=== PATIENT | female | born 1935 | race Caucasian/White ===

== ENCOUNTER 2018-09-06 08:12 | Day surgery (SDC) | payer MEDICARE, SELFPAY ==
[2018-08-25 07:37] VITALS: BMI 27.4
--- NOTE | 2018-08-25 07:59 | HP_ITS ---
Intake Vital Signs 08/25/18 Height 5 ft 2 in 08/25/18 Weight: 150 lb 1 oz 08/25/18 Body Mass Index (BMI) 27.4 08/25/18 Blood Pressure 167/92 H 08/25/18 Blood Pressure Location Rt brachial 08/25/18 Blood Pressure Position Sitting 08/25/18 Respiratory Rate 18 08/25/18 Pulse Rate 85 08/25/18 Pulse Ox 96 Intake Visit Reasons: HX OF COLON MONIKA CHACON PATIENT @ [facility] Chief Complaint: constipation, hx colon cancer Cement Paver Required: No Is patient in pain?: No Allergies No Known Allergies Allergy (Verified 08/25/18 07:38) Medications aspirin 81 mg tablet,delayed release 81 mg PO DAILY 08/25/18 [History Confirmed 08/25/18] atorvastatin 20 mg tablet 20 mg PO DAILY 08/25/18 [History Confirmed 08/25/18] cholecalciferol (vitamin D3) 2,000 unit capsule 2,000 unit PO DAILY 08/25/18 [History Confirmed 08/25/18] lactobacillus combination no.8 3 billion cell capsule 3,000 mmu cells PO DAILY 08/25/18 [History Confirmed 08/25/18] lansoprazole 15 mg capsule,delayed release 15 mg PO DAILY 08/25/18 [History Confirmed 08/25/18] methylcellulose (laxative) 500 mg tablet 500 mg PO ONCE 08/25/18 [History Confirmed 08/25/18] polyethylene glycol 3350 17 gram oral powder packet 17 g PO DAILY 08/25/18 [History Confirmed 08/25/18] vit C-vit [id number] ox-lutein 226 mg-200 unit-5 mg-0.8 mg capsule cap PO cap 08/25/18 [History Confirmed 08/25/18] Is last menstrual period known: No Post menopausal: Yes Patient : No PFSH Medical History Colon polyps (Acute) GERD (gastroesophageal reflux disease) (Acute) Hyperlipidemia (Acute) Lymphocytic colitis (Acute) Osteoporosis (Acute) Personal history of colon cancer (Acute) Thyroid goiter (Acute) Surgical History History of cataract extraction (Acute) History of colon resection (Acute ~2000) History of colonoscopy (Acute ~2012) History of eye surgery (Acute) History of hysterectomy (Acute) Social History Smoking Status: Never smoker ROS General General: Yes weight change and colon cancer; no appetite, fatigue, breast cancer or weakness HEENT HEENT: No difficulty swallowing, eye injury, eye surgery, swollen glands or hoarseness Endo Endocrine: No thyroid disease, diabetes mellitus, thyroid cancer, Hair loss, heat intolerance or cold intolerance Cardio Cardiovascular: No murmur, pacemaker, heart disease, atrial fibrillation, high blood pressure, heart attack, heart stent, palpitations, shortness of breat with exertion or chest pain Resp Respiratory: No shortness of breath, No sleep apnea, No cough, No COPD, No asthma, No emphysema, No wheezing Gastro Gastrointestinal: No abdominal pain, No nausea or vomiting, No diarrhea, Yes constipation, No blood in stool, Yes acid reflux, No hemorrhoids, No ulcers, No gallbladder problem, No black,tarry stools Chepe Hematologic: Yes blood thinners, No blood disorders, No bleeding, No anemia, No blood clots Neuro Neurologic: No weakness Exam Const General: no acute distress, well developed, well hydrated Orientation: oriented to person, oriented to place, oriented to time [facility] Head: normocephalic, atraumatic Ears: external ears normal Mouth: moist mucous membranes Eyes Sclera: sclerae normal Pupils: normal by confrontation Neck Neck: no lymphadenopathy noted Neck mass: No Thyroid: thyroid normal, symmetrical Chest Chest palpation & inspection: normal inspection of the chest Resp Effort & Inspection: normal respiratory effort Auscultation: clear to auscultation bilaterally Percussion: percussion normal Cardio Rate: regular rate Rhythm: regular rhythm Heart Sounds: no murmurs GI Palpation: soft, no hepatosplenomegaly, no masses, nontender Rectal Exam: other Other: Rectal exam deferred. Extrem General: normal to inspection, no clubbing, cyanosis or edema Assessment & Plan Problems 1. Gastroesophageal reflux disease, esophagitis presence not specified K21.9 2. Constipation, unspecified constipation type K59.00 3. Personal history of colon cancer Z85.038 Plan I have discussed the above with the patient. I have offered the patient colonoscopy as well as an esophagogastroduodenoscopy for evaluation. I have explained the risks/benefits of the procedure and described the procedure. I have discussed the risks with the patient, including but not limited to: infection, bleeding, perforation of the GI tract requiring emergency surgery, inability to complete the procedure, injury to any internal organs, complications of anesthesia, etc. - the patient understands and agrees to proceed. I have answered all the patient's questions to the patient's satisfaction and the patient has no further questions. The patient has been given instructions for the colon cleansing preparation. Orders Orders: Colonoscopy Today R19.4, Z85.038 EGD Today K21.9 Coding Level of Care Code Off vis,new,level 3 Diagnoses Gastroesophageal reflux disease, esophagitis presence not specified K21.9 ??Esophagitis presence: esophagitis presence not specified Constipation, unspecified constipation type K59.00 ??Constipation type: unspecified constipation type Personal history of colon cancer Z85.038
[2018-09-06 08:28] VITALS: BP 133/71; PULSE 88; RESP 16; TEMP 37.2; O2SAT 99; BMI 27.8
[2018-09-06 09:05] VITALS: BP 133/71; BP 138/71; PULSE 88; RESP 14
--- NOTE | 2018-09-06 09:30 | COLBX_PTH ---
PATIENT: VIRI LEVI LOC: EN U#:[id number] AGE/SX: 82/F ROOM: RE09/06/[address]: Dr. Kyle Aceves MD : [id number] BED: DIS: 09/06/2018 SPEC #: [id number] RECD: 09/06/18 10:06 STATUS: ROBERT FELTON #: [id number] LOPEZ: 09/06/18 09:[address]: Kyle Aceves DEPT: SURGICAL PATHOLOGY RECD BY: Nicolas Srivastava ENTERED: 09/06/18 10:19 SP TYPE: COLON BX OTHR DR: Dr. Iglesia Frias MD Tissues: Gastric mucous membrane Procedures: Surgery Specimen Level IV HEADER OPERATION: Colonoscopy, EGD ([facility] [place]) PRE-OP DIAGNOSIS: History colon CA, GERD, constipation TISSUE SUBMITTED: Fundic polyp biopsy MICROSCOPIC DIAGNOSIS Fundic gland polyp, biopsy: Fundic gland polyp. AM:[place] 4/9/19 MICROSCOPIC DESCRIPTION Slides are reviewed. GROSS DESCRIPTION Received in fixative is one container labeled with the patient's name and designated fundic polyp biopsy. The specimen consists of two irregular fragments of light wiley soft tissue that in aggregate measure 0.4 x 0.3 x 0.1 cm. The specimen is totally submitted in one cassette. / SJ:rg 09/06/18 TC:5 CPT: 27033
[2018-09-06 09:55] VITALS: BP 123/63; BP 133/71; PULSE 84; RESP 16; TEMP 36.8; O2SAT 97
--- NOTE | 2018-09-06 09:56 | OP.ENDO_ITS ---
09/06/2018 Iglesia Frias [address] [place] [address] Re : Upper GI endoscopy procedure for Cami Allen Dear Dr. Frias This procedure was performed on Thursday, September 06, 2018. My impressions and recommendations are as follows: Impressions : - Normal esophagus. - Z-line regular, 35 cm from the incisors. - Multiple gastric polyps. Biopsied. - Normal examined duodenum. No specimens collected. - The examination was otherwise normal. Recommendations : - Discharge patient to home. - Resume previous diet. - Continue present medications. - Await pathology results. - Repeat upper endoscopy (date not yet determined) for surveillance. - Return to my office in 1 week. My findings are described in the full procedure note, which is enclosed. If I can be of further assistance, please feel free to contact me at Doctor phone number(s): , Fax: [phone], Work: . Sincerely, MD Kyle José MD 09/06/2018 9:55:49 AM This report has been signed electronically.
[2018-09-06 10:00] VITALS: BP 124/72; BP 133/71; PULSE 88; RESP 16; O2SAT 97
--- NOTE | 2018-09-06 10:01 | OP.ENDO_ITS ---
09/06/2018 Iglesia Frias [address] [place] [address] Re : Colonoscopy procedure for Cami Allen Dear Dr. Frias This procedure was performed on Thursday, September 06, 2018. My impressions and recommendations are as follows: Impressions : - Diverticulosis in the descending colon. No specimens collected. - Non-bleeding internal hemorrhoids. - The entire examined colon is normal. - Patent end-to-end colo-colonic anastomosis, characterized by healthy appearing mucosa. No specimens collected. Recommendations : - Discharge patient to home. - Resume previous diet. - Continue present medications. - Repeat colonoscopy in 5 years for surveillance. - Return to my office in 1 week. My findings are described in the full procedure note, which is enclosed. If I can be of further assistance, please feel free to contact me at Doctor phone number(s): , Fax: [phone], Work: . Sincerely, MD Kyle José MD 09/06/2018 10:01:09 AM This report has been signed electronically.
[2018-09-06 10:12] VITALS: BP 133/71; BP 143/71; PULSE 86; RESP 14; TEMP 37; O2SAT 97
[2018-09-06 10:39] VITALS: BP 133/71
== END 2018-09-06 11:03 | disposition home or self-care (01) ==
LOC: EN 08:13 → AC 08:14
PROVIDERS: Family Provider Family Medicine; PCP Family Medicine; Referring Provider Surgery; Visit Provider Surgery
PROC: 0DJD8ZZ Inspection of Lower Intestinal Tract, Via Natural or Artificial Opening Endoscopic (ICD-10-PCS; CPT 45378; principal; 2018-09-06 09:25)
DX: Z12.11 Encounter for screening for malignant neoplasm of colon (principal); K63.5 Polyp of colon; K57.30 Diverticulosis of large intestine without perforation or abscess without bleeding; K64.8 Other hemorrhoids; K59.00 Constipation, unspecified; K21.9 Gastro-esophageal reflux disease without esophagitis; K52.832 Lymphocytic colitis; E04.9 Nontoxic goiter, unspecified; E78.5 Hyperlipidemia, unspecified; M81.0 Age-related osteoporosis without current pathological fracture; Z78.0 Asymptomatic menopausal state; Z79.82 Long term (current) use of aspirin; Z79.899 Other long term (current) drug therapy; Z85.038 Personal history of other malignant neoplasm of large intestine; Z86.2 Personal history of diseases of the blood and blood-forming organs and certain disorders involving the immune mechanism; Z98.0 Intestinal bypass and anastomosis status
CPT/HCPCS: 43239; G0105; 88305; J7120; J2405

== ENCOUNTER 2018-10-04 07:57 | Emergency (ER) | payer MEDICARE, SELFPAY ==
[2018-10-04 07:58] VITALS: BP 152/85; PULSE 96; RESP 28; TEMP 36.3; O2SAT 99; BMI 28.5
--- NOTE | 2018-10-04 08:17 | ED.DCSUM_ITS ---
History of Present Illness Chief Complaint: General Illness Detail of Chief Complaint: Anxiousness, trouble coping, weight loss, difficulty with sleep Informant: Patient, Friend - Friend since college Onset: Weeks Context: - - Per friend has gotten significantly worse over the past several weeks. Patient attributes to change after colonoscopy. Colonoscopy performed by Dr. Aceves. She states colonoscopy was normal. Timing: Intermittent, Waxes and wanes Quality: Uneasiness, anxiousness and unable to cope. Location: Not applicable Current Severity: Severe Maximum Severity: Severe Worsened by: Unknown Relieved by: Nothing Associated Symptoms: Read narrative Narrative: Patient is a elderly woman who lives alone who was brought to the emergency department by college friend because of difficulty and not able to cope with things . Patient states she has had difficulty sleeping for the past several weeks. Worse past month. She also reports times where she is unable to function or cope. There is no specific triggers. Nothing alleviates her symptoms. She made, and she is not able to see her doctor then she made a comment that she was able to see her doctor and was scheduled for colonoscopy because of history of colon cancer and change in bowels. She denies fever, chills night sweats. She does report weight loss. When asked how much she began to cry. She has noted that her clothes are looser. She denies ocular, visual auditory symptoms. She denies cardiac restaurant symptoms. She denies abdominal pain. She did report constipation. She denies dysuria, frequency, urgency or hematuria. She denies history of depression or anxiety. She denies suicidal thoughts. Prior similar symptoms: No Recent Illness/Hospitalization: Yes - Past Medical History (1) History of colon cancer Status: Acute (2) History of high cholesterol Status: Acute Past Medical History - Allergies and Home Meds Allergies/Adverse Reactions: Allergies budesonide Allergy (Verified 10/04/18 07:58) Rash erythromycin base Adverse Reaction (Verified 10/04/18 07:58) Vomiting Primary Care Physician: Iglesia Frias MD [Primary Care Provider] - [facility] [GROUP OF PHYSICIANS] - Prior records reviewed: No Surgical History: - - : Secondary to colon cancer and recent colonoscopy Lives: Alone Smoking Status: Never smoker Alcohol: None Drugs: None Review of Systems General: Reports: Weight loss - Weight loss is unintentional. Denies: Chills, Fever, Malaise, Subjective, Sweats, - Eyes: Denies: Visual changes - bilaterally, Diplopia ENT: Denies: Rhinorrhea, Sore throat Cardiovascular: Denies: Chest pain, Palpitations Respiratory: Denies: Dyspnea, Cough, Dyspnea on exertion Gastrointestinal: Denies: Abdominal pain, Nausea, Vomiting, Diarrhea, Melena, Hematochezia Genitourinary: Denies: Dysuria, Hematuria, Frequency Musculoskeletal: Denies: Back pain, Extremity Pain Skin: Denies: Rash, Wounds Neurological: Denies: Headache, Weakness, Numbness Psych: Reports: Anxiety. Denies: Depression, Suicidal thoughts, Suicidal ideations Hematologic: Denies: Easy bruising, Easy bleeding Allergy: Denies: Uticaria Physical Exam Vital Signs/Narrative: Vital Signs Temp Pulse Resp BP Pulse Ox 10/04/18 07:58 97.4 F L 96 28 H 152/85 H 99 Inital Vital Signs reviewed: Yes General: Well nourished, Well developed, Acute Distress, - - No eye contact during history of physical. Patient had periods where she began to cry. She also struck her head and states she is not able to cope. Head: Normocephalic, Atraumatic Eyes: Perrl, EOMI. Negative for: Pale conjunctiva, Scleral icterus ENT: No rhinorrhea, TM's clear, Dry mucous membranes Neck: Supple, Nontender, No lymphadenopathy, No JVD Cardiovascular: Regular rate, Regular rhythm, No murmurs, Normal S1, Normal S2 Respiratory: No distress, CTA bilaterally, Chest nontender Abdomen: Soft, Nontender, Nondistended, Normal bowel sounds, No masses Rectal: Deferred Back: Nontender, Normal Inspection Extremities: Nontender, No edema Skin: Normal color, No rash Neurological: Alert, Oriented x3, Cranial nerves II-XII grossly intact, Normal Strength, Normal Sensation Psychological: Tearful, - - Emotions are labile. No eye contact during history and physical. Patient states she is having difficulty and unable to explained. Diagnostic/Tx/Re-eval Laboratory Results 10/04/18 10/04/18 08:30 08:30 WBC 7.1 RBC 4.63 Hgb 13.6 Hct 39.8 MCV 86.0 MCH 29.4 MCHC 34.2 RDW 13.1 RDW Differential 41.5 Plt Count 313 MPV 9.4 Immature Gran % (Auto) 0.100 Neut % (Auto) 72.6 H Lymph % (Auto) 18.7 L [place]as % (Auto) 7.0 Eos % (Auto) 1.3 Baso % (Auto) 0.3 Absolute Neuts (auto) 5.2 Absolute Lymphs (auto) 1.33 Total Counted Not Reportable Sodium 138 Potassium 4.2 Chloride 107 Carbon Dioxide 23.0 Anion Gap 8 BUN 13 Creatinine 0.91 Estim Creat Clear Calc 35.97 Est GFR (MDRD) Af Amer 76 Est GFR (MDRD) Non-Af 63 BUN/Creatinine Ratio 14.3 Glucose 106 Calcium 9.6 - Medical Decision Making Goal is sleeping, weight loss, difficulty coping concern patient is depressed with anxiety. Screening blood work was obtained. Consult was placed to case management. Since patient is not suicidal has no prior history of depression and a modified sad person score less than 6 she is a candidate for outpatient referral and treatment. Screening blood work was obtained because of weight loss to evaluate for organic causes. Patient and family was informed test results were normal. Patient is no longer anxious or tearful. She reports feeling markedly better after 0.5 mg of Ativan. Awaiting case management eval to help facilitate outpatient treatment. washtub worker from case management seen patient. She is performing a depression and anxiety screen. Per conversation recommend referral to behavioral health. Will set up first appointment. ED Disposition - Plan for ED Patient: Disposition: Home or Assisted Living Diagnosis: Panic attack, Depression Instructions: ED Stress React Prescriptions: Lorazepam [Ativan] 0.5 mg PO BID PRN PRN 5 Days #10 tablet PRN Reason: Stress/anxiety Referrals: Iglesia Frias MD [Primary Care Provider] - Behavioral,Health [facility] [GROUP OF PHYSICIANS] - Keep Lanre appointment Additional Instructions: Your prescription was electronically transmitted to [facility] pharmacy on pharmacy of choice.
[2018-10-04] MEDS: LORazepam 2 MG/ML Syringe 0.5 MG IV (08:35)
[2018-10-04 08:39] LABS: Absolute Lymphocyte Count 1.33 X10^3/ul (0.83-4.51); Absolute Neutrophil Count 5.2 X10^3/uL (2.0-7.7); Basophil# 0.02 X10^3/uL; Basophil% 0.3 % (0-1); Eosinophil# 0.09 X10^3/uL; Eosinophils% 1.3 % (0-5); Hematocrit 39.8 % (37-47); Hemoglobin 13.6 g/dl (12.0-15.0); Lymphocyte # 1.33 X10^3/ul (4.0); Lymphocyte % 18.7 % (19-41); Mean Corp Hgb Conc 34.2 g/gl (32-36); Mean Corpuscular Hgb 29.4 pg (27.0-32.0); Mean Platelet Vol. 9.4 fl (6.2-12.0); Neutrophil # 5.17 X10^3/uL (2.7-7.7); Neutrophil % 72.6 % (47-70); POSITIVE COUNT NO; POSITIVE DIFFERENTIAL NO; POSITIVE MORPHOLOGY NO; Platelet Count 313 K/mm3 (150-450); RBC Distribution Width CV 13.1 % (11.6-14.6); RBC Distribution Width SD 41.5 fl (35.1-43.9); Red Blood Count 4.63 M/mm3 (4.2-5.4); White Blood Count 7.1 K/mm3 (4.4-11.0)
[2018-10-04 08:49] LABS: Anion Gap 8 (5-15); BUN 13 mg/dL (7-18); BUN/Creat Ratio 14.3 RATIO (10-20); Calcium,Total 9.6 mg/dL (8.5-10.1); Chloride 107 mmol/L (98-107); Creatinine, Serum 0.91 mg/dL (0.55-1.02); EST Glomerular Filtration Rate 63 mL/min (>60); Est Glom Filt Rate - Afr Amer 76 mL/min (>60); Estimated Creatinine Clearance 35.97 ml/min; Glucose 106 mg/dL (74-106); Potassium 4.2 mmol/L (3.5-5.1); Sodium Level 138 mmol/L (136-145)
[2018-10-04 10:21] VITALS: BP 133/85
[2018-10-04 11:29] VITALS: BP 141/76; PULSE 83; RESP 14; O2SAT 99
--- NOTE | 2018-10-04 14:11 | CASEMGMT ---
Social Work Assessment: Referred by: Dr. Mahoney Date and Time of intervention: 10/04/18 9:30 am Reason for referral: Anxiety History obtained from: Patient, daughter and life long friend. Household Composition: Patient lives alone in a 2 story home. Patient's family dynamic and status: Patient has a daughter in [place], a son in [facility] ([place]) and a son in [place] ([place]). Patient has been a since 1994. Patient was in a relationship with another man from from [phone] and he in 2012.Patient has a life long friend who is very supportive. Patient belongs to [employer] [facility] [employer] and is active with the [employer] ministries. Patient states that she would have support through the [employer]ae[employer] if she asked for it. Pertinent Medical History: Patient has a history of colon cancer. Patient had a colonoscopy in August due to constipation. Patient is functionally independent. Patient states that she has had insomnia since her colonoscopy on September 04. Patient states she falls asleep ok but then wakes up at 2:00 or 2:30 and is unable to fall back to sleep. Educational/Work Status: Patient has a Master's degree in Education. 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 Patient retired 24 years ago (1994). Financial status: Patient states she is financially stable and has [employer] . Behavioral Health Issues: Mental history: patient denies any history of mental health health issues Substance use history: patient denies Family history: patient denies Drug screens: none Screening Tools: PHQ-9: Completed. Patient scored a 9 indicating mild depression PATIENCE-7: Completed. Patient scored a 15 indicating severe anxiety. Family/Social Stressors: Patient denies any current life stressors other than a blown out tire and some issues with property that she owns. Patient identifies her current stressor as not being able to sleep at night. Assessment: Per ED physician, patient was given a low dose of Ativan earlier in ED visit. During SW assessment patient appeared to have a calm demeanor as evidenced by verbalizing openly with this SW regarding current emotional status. Patient describes her emotional status as shaking inside and states that it is mostly at night when she is unable to sleep but it also happens during the day especially when she is alone. Patient's emotional distress appears to be mostly tied to her inability to sleep and the fear that something bad is going to happen to her. Patient admits to feeling anxious and nervous and also admits to not being able to control worrying. Patient verbalizes that she often experiences feelings of fear that something bad is going to happen. Patient denies suicidal ideations as well as thoughts and intent. Patient denies thoughts of being better off or wanting to hurt herself but admits to not wanting to feel like this anymore. Discussed ways that patient currently tello. Patient states that she does better when she is with people and gets more anxious when she is alone. Patient states that when she can not sleep at night, she turns on the TV or reads a book. Discussed counseling services including [facility]. Patient is open to counseling and is agreeable to this SW making a referral to [facility] for a mental health assessment. Intervention: - Referral to [facility]. Appointment scheduled for Thursday10/04/18 at 2:30. - Provided patient with a handout on Sleep Hygiene to assist with insomnia - Supportive Counseling and active listening provided - Encouraged patient to utilize support system PLAN: Patient has an appointment with [facility] on Thursday10/04/18 at 2:30. Patient to return home with support of family and friends. Dr. Mahoney aware of above. MILAN Josue
== END 2018-10-04 11:30 | disposition home or self-care (01) ==
PROVIDERS: Emergency Provider Emergency Medicine; Family Provider Family Medicine; PCP Family Medicine
DX: F41.0 Panic disorder [episodic paroxysmal anxiety] (principal); F32.9 Major depressive disorder, single episode, unspecified; E78.00 Pure hypercholesterolemia, unspecified; Z85.038 Personal history of other malignant neoplasm of large intestine; Z60.2 Problems related to living alone
CPT/HCPCS: 80048; 85025; 96374; 99283; A4216